=== PATIENT | female | born 1960 | race African-American/Black ===

== ENCOUNTER 2017-07-07 19:27 | Emergency (ER) | payer MEDICAID | END 2017-07-07 22:00 | LOC: ERS 19:27 | DX: N61.1 Abscess of the breast and nipple (principal); E11.9 Type 2 diabetes mellitus without complications; E78.5 Hyperlipidemia, unspecified; I10 Essential (primary) hypertension; F41.9 Anxiety disorder, unspecified; F31.9 Bipolar disorder, unspecified; F20.9 Schizophrenia, unspecified; F17.210 Nicotine dependence, cigarettes, uncomplicated | CPT/HCPCS: 99406 ==

== ENCOUNTER 2017-07-08 12:16 | Day surgery (SDC) | payer MEDICAID, OTHER ==
[2017-07-08 15:26] LABS: #Basophils 0.1 thou/uL (0.0-0.2); #Eosinphils 0.1 thou/uL (0.0-0.7); #Monocytes 0.7 thou/uL (0.11-0.59); #Neutrophils 3.7 thou/uL (1.40-6.50); %Basophils 1.1 % (0.0-1.0); %Lymphocytes 30.6 % (21.0-51.0); Hematocrit 47.7 % (36.0-47.0); Mean Platelet Volume 6.5 fL (7.4-10.4); Red Blood Cell (RBC) Count 5.02 mill/uL (4.20-5.40); White Blood Cell (WBC) Count 6.6 thou/uL (4.8-10.8)
[2017-07-08 15:32] LABS: PTT 27.4 SEC (22.9-36.1); Prothrombin Time 13.2 SEC (12.0-14.7)
[2017-07-08 15:48] LABS: ALT (SGPT) 29 U/L (8-55); AST (SGOT) 18 U/L (5-34); Alkaline Phosphatase 103 U/L (40-150); Anion Gap 11 mmol/L (10-20); BUN (Urea Nitrogen) 15 mg/dL (9.8-20.1); Bilirubin, Total 0.3 mg/dL (0.2-1.2); Calc. Creatinine Clearance 0 mL/min (70-130); Calcium 10.3 mg/dL (7.8-10.44); Carbon Dioxide 25 mmol/L (22-29); Chloride 107 mmol/L (98-107); Estimated GFR-MDRD 50; Globulin 3.7 g/dL (2.4-3.5); Protein, Total 7.7 g/dL (6.0-8.3)
--- NOTE | 2017-07-08 16:18 | HP ---
CHIEF COMPLAINT: Right breast infection. HISTORY OF PRESENT ILLNESS: This is a 56-year-old female who reports a 10-day history of right centr al breast swelling and pain. Her last mammogram was 10-12 years ago. No family history of breast ca ncer. She has had no drainage, no previous surgery. PAST MEDICAL HISTORY: Hypertension, schizophrenia, bipolar depression, diabetes, and gastroesophagea l reflux. PAST SURGICAL HISTORY: She has had a bilateral tubal ligation, colonoscopy, and left salpingo-oophor ectomy. ALLERGIES: No known drug allergies. MEDICATIONS: Include Zestril, Zyprexa, Lopressor, Neurontin, Bactrim, fenofibrate, pantoprazole, pra vastatin, aspirin, Depakote, Tradjenta, Haldol, Celexa, Abilify, and Lexapro. ALLERGIES: No known drug allergies. SOCIAL HISTORY: She lives in a halfway. She smokes 1 pack per day. Occasional alcohol. FAMILY HISTORY: Heart disease and diabetes. PHYSICAL EXAMINATION: VITAL SIGNS: Temperature 97.6, pulse 82, blood pressure 117/68. GENERAL: Well-developed, well-nourished female, in no apparent distress. HEENT: Unremarkable. LUNGS: Clear. HEART: Regular rate and rhythm. ABDOMEN: Soft, nontender, good bowel sounds. BREASTS: She has a right very large right nipple that is erythematous and dilated, 2 x 2 cm, mildly tender. There is 6 cm cellulitis in the central breast. There is adenopathy in the right axilla manuel t is palpable and firm. EXTREMITIES: Otherwise unremarkable. LABORATORY DATA AND X-RAY FINDINGS: White count 6.9, H&H 15 and 45, platelet count 297. Electrolyte s show an elevated glucose of 548, creatinine is 1.36. ASSESSMENT: Poorly controlled diabetes, right inflamed breast, worrisome for neoplasm. PLAN: I&D/biopsy of right breast. Medical consult for uncontrolled diabetes.
[2017-07-08] MEDS ORDERED: Ondansetron HCl/PF 4 MG/2 ML Vial ONE (16:48)
[2017-07-08] MEDS ORDERED: Lidocaine 1% PF 5 ML VIAL ONE (16:48)
[2017-07-08] MEDS ORDERED: Propofol 200 MG/20 ML VIAL ONE (16:48)
[2017-07-08] MEDS ORDERED: Dexamethasone 20 MG/5 ML VIAL ONE (16:48)
[2017-07-08] MEDS ORDERED: PHENYLEPHRINE-NS 100 MCG/ML 10 ML SYRINGE ONE (16:48)
[2017-07-08] MEDS ORDERED: Piperacillin/Tazobactam 3.375 GM in Sodium Chloride 0.9% 100 ML IVPB SCH (18:00)
[2017-07-08] MEDS ORDERED: Lidocaine 2% PF 5 ML VIAL ONE (18:00)
[2017-07-08] MEDS ORDERED: Bupivacaine/Epinephrine 0.25% 30 ML VIAL ONE (18:00)
[2017-07-08] MEDS ORDERED: Fentanyl 100 MCG/2 ML VIAL ONE (18:07)
[2017-07-08] MEDS ORDERED: Midazolam HCl 2 mg/2 ml Vial ONE (18:07)
[2017-07-08] MEDS ORDERED: Ketorolac Tromethamine 30 MG/ML VIAL ONE (19:16)
[2017-07-08] MEDS ORDERED: HYDROcodone/Acetaminophen 5/325 mg Tablet ONE (20:33)
--- NOTE | 2017-07-08 23:57 | OP ---
PREOPERATIVE DIAGNOSIS: Right breast abscess. SURGEON: Con Holder M.D. PROCEDURE PERFORMED: Incision and drainage right breast with right breast biopsy. INDICATIONS: This is a 56-year-old female with a 2 week history of progressive swelling of the right central breast including the nipple. FINDINGS: About 20 mL thick purulent fluid within the nipple. PROCEDURE IN DETAIL: After informed consent was obtained, the patient was taken to the operating [facility] and given general endotracheal anesthesia. She was placed in the supine position. Her right breas t was prepped and draped in the usual fashion. An elliptical incision of the nipple was performed re leasing purulent creamy fluid, which was sent for culture about 20 mL removed, section of the nipple was excised. Then, the cavity was thoroughly irrigated with saline. The deep breast tissue was gras ped with an Allis forceps and a piece was removed sharply, sent to pathology for further analysis. H emostasis was achieved with electrocautery. Wound thoroughly irrigated and packed open with Betadine gauze. Sterile bandage applied. The patient tolerated the procedure well and transferred to [facility] in good condition. Sponge and needle count verified correct x2.
--- NOTE | 2017-08-02 10:42 | EKG ---
Test Reason : Blood Pressure : / mmHG Vent. Rate : 079 BPM Atrial Rate : 079 BPM P-R Int : 144 ms QRS Dur : 068 ms QT Int : 378 ms P-R-T Axes : 036 004 030 degrees QTc Int : 433 ms Normal sinus rhythm Normal ECG Confirmed by PABLO ALCOCER M.D. ([id number]), production editor BONITA BUCIO ([id number] on 08/02/2017 10:42:18 AM Referred By: Confirmed By:PABLO ALCOCER M.D.
== END 2017-07-08 20:56 | disposition home or self-care (01) ==
LOC: ERS 12:16 → SDC 12:16
PROVIDERS: ATTEND Surgery
PROC: 0H9T0ZX Drainage of Right Breast, Open Approach, Diagnostic (ICD-10-PCS; principal; 2017-07-08)
DX: N61.1 Abscess of the breast and nipple (principal); I10 Essential (primary) hypertension; K21.9 Gastro-esophageal reflux disease without esophagitis; F31.9 Bipolar disorder, unspecified; E11.9 Type 2 diabetes mellitus without complications; Z79.899 Other long term (current) drug therapy; Z79.82 Long term (current) use of aspirin; Z79.84 Long term (current) use of oral hypoglycemic drugs
CPT/HCPCS: 36416; 80053; 85025; 85610; 85730; 87070; 87076; 87077; 87186; 87205; 88304; 93005; 99406; J1100; J1885; J2001; J2250; J2405; J2543; J2704; J3010; J7050